=== PATIENT | male | born 1955 | race American Indian/Alaskan Native ===

== ENCOUNTER 2016-09-29 14:47 | Emergency (ER) | payer OTHER ==
[2016-09-29 15:00] VITALS: BMI 32.8
[2016-09-29 15:30] VITALS: RESP 20
--- NOTE | 2016-09-29 15:46 | C.PDOC ---
History Of Present Illness 61 year old male presents to the ED after being referred from outpatient psychiatry because patient states he "feels weird" with lightheadedness beginning today. Patient denies any other physical complaints at this time. Time Seen by Provider: 09/29/16 15:40 Chief Complaint (Nursing): Dizziness/Lightheaded History Per: Patient History/Exam Limitations: no limitations Onset/Duration Of Symptoms: Hrs Current Symptoms Are (Timing): Still Present Past Medical History Vital Signs: Last Vital Signs Temp 98.3 F 09/29/16 16:32 Pulse 71 09/29/16 16:32 Resp 20 09/29/16 16:32 BP 136/64 09/29/16 16:32 Pulse Ox 98 09/29/16 17:22 - Medical History PMH: Arthritis, Asthma, Back Problems, Depression, HTN, Schizophrenia Denies: Diabetes, Hepatitis, HIV, Seizures, Sexually Transmitted Disease - [facility] Procedures GROUP PSYCHOTHERAPY (06/22/15) INDIVIDUAL PSYCHOTHERAPY, SUPPORTIVE (06/03/15) MEDICATION MANAGEMENT (06/22/15) Family History: States: Unknown Family Hx - Social History Hx Tobacco Use: No Hx Alcohol Use: Yes (dereje every day) Hx Substance Use: No - Immunization History Hx Tetanus Toxoid Vaccination: No Hx Influenza Vaccination: No Hx Pneumococcal Vaccination: No Physical Exam - Physical Exam Appears: Non-toxic, No Acute Distress Skin: Warm, Dry Head: Atraumatic Eye(s): bilateral: Normal Inspection, PERRL, EOMI Oral Mucosa: Moist Neck: Supple Chest: Symmetrical, No Deformity Cardiovascular: Rhythm Regular Respiratory: Normal Breath Sounds, No Rhonchi, No Wheezing Gastrointestinal/Abdominal: Soft, No Tenderness, No Distention, No Guarding, No Rebound Extremity: Normal ROM, No Tenderness Neurological/Psych: Oriented x3, Normal Speech, Normal Cognition, Normal Cranial Nerves, Normal Motor, Normal Sensation ED Course And Treatment O2 Sat by Pulse Oximetry: 98 Medical Decision Making Medical Decision Making: underlying psych issues no acute medical issues no w/u indicated. Disposition Doctor Will See Patient In The: Office Counseled Patient/Family Regarding: Studies Performed, Diagnosis - Disposition Referrals: [facility] [Outside] [facility] [Outside] [facility] [Outside] Disposition: HOME/ ROUTINE Disposition Time: 15:46 Condition: GOOD Additional Instructions: please continue your meds per psych recommendations Follow up with your doctor as scheduled. Instructions: Schizophrenia (ED) Forms: [employer] (Mongolian) - Clinical Impression Clinical Impression: Schizophrenia, schizoaffective, chronic - Scribe Statement The provider has reviewed the documentation as recorded by the Scribjenn Yousif All medical record entries made by the Bisiibe were at my direction and personally dictated by me. I have reviewed the chart and agree that the record accurately reflects my personal performance of the history, physical exam, medical decision making, and the department course for this patient. I have also personally directed, reviewed, and agree with the discharge instructions and disposition.
[2016-09-29 16:34] VITALS: BP 136/64; PULSE 71; TEMP 98.3
[2016-09-29 17:14] VITALS: O2SAT 98
== END 2016-09-29 16:32 | disposition home or self-care (01) ==
LOC: C.ER 14:47
DX: F25.9 Schizoaffective disorder, unspecified (principal)

== ENCOUNTER 2017-05-25 14:38 | Emergency (ER) | payer MEDICARE, OTHER ==
[2017-05-25 14:42] VITALS: BMI 32.8
[2017-05-25 14:52] VITALS: BP 103/78; PULSE 73; RESP 16; TEMP 97.4; O2SAT 96
--- NOTE | 2017-05-25 15:15 | C.PDOC ---
History Of Present Illness 61 y/o male brought to ER by ambulance from the office of his PMD, Dr.Monica Moore, because he was difficult to arouse. woke up the patient by splashing water on his face. Patient states that he receives 84 10/325 Percocets for chronic neck pain each month. Patient states that he is pending a refill of narcotics for his chronic neck pain. Time Seen by Provider: 05/25/17 15:08 Chief Complaint (Nursing): Medical Clearance History Per: Patient History/Exam Limitations: no limitations Past Medical History Reviewed: Historical Data, Nursing Documentation, Vital Signs Vital Signs: Last Vital Signs Temp 97.4 F L 05/25/17 14:47 Pulse 73 05/25/17 14:47 Resp 16 05/25/17 14:47 BP 103/78 05/25/17 14:47 Pulse Ox 96 05/25/17 18:13 - Medical History PMH: Arthritis, Asthma, Back Problems, Depression, HTN, Schizophrenia Denies: Diabetes, Hepatitis, HIV, Seizures, Sexually Transmitted Disease Surgical History: No Surg Hx - [facility] Procedures GROUP PSYCHOTHERAPY (06/22/15) INDIVIDUAL PSYCHOTHERAPY, SUPPORTIVE (06/03/15) MEDICATION MANAGEMENT (06/22/15) Family History: States: No Known Family Hx - Social History Hx Tobacco Use: No Hx Alcohol Use: No Hx Substance Use: No - Immunization History Hx Tetanus Toxoid Vaccination: No Hx Influenza Vaccination: No Hx Pneumococcal Vaccination: No Review Of Systems Except As Marked, All Systems Reviewed And Found Negative. Physical Exam - Physical Exam Appears: No Acute Distress, Other (easily arousable, pleasant) Skin: Normal Color, Warm Head: Atraumatic, Normacephalic Eye(s): bilateral: Other (pinpoint pupils) Nose: Normal Oral Mucosa: Moist Neck: Supple Chest: Symmetrical Cardiovascular: Rhythm Regular Respiratory: Normal Breath Sounds, No Rales, No Rhonchi, No Wheezing Neurological/Psych: Oriented x3, Normal Speech ED Course And Treatment O2 Sat by Pulse Oximetry: 96 (RA) Pulse Ox Interpretation: Normal Medical Decision Making Medical Decision Making: persistent narcotics abuse easily arousable in ED, pinpoint pupils pt declines w/u normal exam, agree Case has been discussed with . [place] [employer] submitted as no alternative methods of pain management appears to have been used. Disposition Doctor Will See Patient In The: Office Counseled Patient/Family Regarding: Studies Performed, Diagnosis - Disposition Referrals: Azucena Moore MD [Non-Staff] - Disposition: HOME/ ROUTINE Disposition Time: 15:15 Condition: GOOD Additional Instructions: avoid overuse of your narcotics as they can make you very sleepy consider reducing your percocet volume and other pain control methods for your chronic neck pain Instructions: Prescription Drug Misuse, Opioid Use Disorder Forms: [employer] ([place] Citizen) - Clinical Impression Clinical Impression: Narcotic abuse - Scribe Statement The provider has reviewed the documentation as recorded by the Scribe Shailesh Aponte Provider Attestation: All medical record entries made by the Scribe were at my direction and personally dictated by me. I have reviewed the chart and agree that the record accurately reflects my personal performance of the history, physical exam, medical decision making, and the department course for this patient. I have also personally directed, reviewed, and agree with the discharge instructions and disposition.
== END 2017-05-25 15:28 | disposition home or self-care (01) ==
LOC: C.ER 14:38
DX: F11.10 Opioid abuse, uncomplicated (principal)

== ENCOUNTER 2018-04-22 13:59 | Outpatient (CLI) | payer MEDICARE, OTHER | END 2018-04-22 14:00 | disposition home or self-care (01) | LOC: C.RADIC 13:59 | DX: M17.0 Bilateral primary osteoarthritis of knee (principal); M19.012 Primary osteoarthritis, left shoulder; M19.011 Primary osteoarthritis, right shoulder; M50.30 Other cervical disc degeneration, unspecified cervical region; M47.892 Other spondylosis, cervical region; M47.896 Other spondylosis, lumbar region; M47.894 Other spondylosis, thoracic region ==

== ENCOUNTER 2018-05-29 14:09 | Outpatient (CLI) | payer MEDICARE, OTHER | END 2018-05-29 14:10 | disposition home or self-care (01) | LOC: C.LAB 14:09 ==